=== PATIENT | male | born 1990 | race American Indian/Alaskan Native ===

== ENCOUNTER 2018-09-16 13:32 | Emergency (ER) | payer MEDICAID ==
[2018-09-16 13:52] VITALS: RESP 18
--- NOTE | 2018-09-16 14:58 | RAD ---
Date of service: 09/16/2018 HISTORY: abd pain COMPARISON: No prior. TECHNIQUE: Chest PA and lateral views FINDINGS: LUNGS: No active pulmonary disease. PLEURA: No significant pleural effusion identified. No pneumothorax apparent. CARDIOVASCULAR: No aortic atherosclerotic calcification present. Normal cardiac size. No pulmonary vascular congestion. OSSEOUS STRUCTURES: No significant abnormalities. VISUALIZED UPPER ABDOMEN: Normal. OTHER FINDINGS: None. IMPRESSION: No active disease.
[2018-09-16 15:02] LABS: BASO % 0.6 % (0.0-2.0); EOS # 0.1 K/uL (0.0-0.7); EOS % 1.4 % (0.0-4.0); HEMOGLOBIN 16.1 g/dL (12.0-18.0); LYMPH # 3.1 K/uL (1.0-4.3); LYMPH % 47.6 % (20.0-40.0); MEAN CELL VOLUME 84.6 fL (80.0-94.0); MEAN CORPUSCULAR HEMOGLOBIN 28.4 pg (27.0-31.0); MEAN CORPUSCULAR HGB CONC 33.6 g/dL (33.0-37.0); MEAN PLATELET VOLUME 6.7 fL (7.2-11.7); MONO # 0.5 K/uL (0.0-0.8); MONO % 8.1 % (0.0-10.0); NEUT # 2.8 K/uL (1.8-7.0); NEUT % 42.3 % (50.0-75.0); NRBC % 0.1 % (0.0-2.0); RBC 5.65 Mil/uL (4.40-5.90); RED CELL DISTRIBUTION WIDTH 13.1 % (11.5-14.5); WHITE BLOOD COUNT 6.5 K/uL (4.8-10.8)
[2018-09-16 15:06] LABS: URINE BILIRUBIN NEGATIVE (NEGATIVE); URINE BLOOD NEGATIVE (NEGATIVE); URINE CLARITY Clear (Clear); URINE COLOR Yellow (YELLOW); URINE GLUCOSE (UA) NORMAL (Normal); URINE LEUKOCYTE ESTERASE NEG Leu/uL (Negative); URINE PROTEIN NEGATIVE (NEGATIVE)
[2018-09-16 15:14] LABS: ALB/GLOB RATIO 1.2 (1.0-2.1); ALBUMIN 4.6 g/dL (3.5-5.0); ALT/SGPT 40 U/L (21-72); AST/SGOT 46 U/L (17-59); BLOOD UREA NITROGEN 13 mg/dL (9-20); CALCIUM 9.8 mg/dl (8.6-10.4); GFR NON-AFRICAN AMERICAN > 60
[2018-09-16 15:21] LABS: BARBITURATES, UR NEGATIVE (NEGATIVE); BENZODIAZEPINES, UR NEGATIVE (NEGATIVE); OPIATES, UR NEGATIVE (NEGATIVE); PHENCYCLIDINE, UR NEGATIVE (NEGATIVE)
--- NOTE | 2018-09-16 15:31 | C.PDOC ---
History Of Present Illness 28 year old male presents to the ED complaining of lower back pain for 3 weeks. Pain radiates down both legs. He also feels numbness and weakness to the right leg. Also for the past 2 weeks patient reports numbness to his tongue, legs, and arms. Patient went to [facility] [place] where they did an MRI and told patient he had herniated discs and a pinched nerve. They gave Tylenol and Motrin, which patient took without relief. Patient then followed up with Dr. Collins, who referred patient for neurology appointment that is scheduled for next month. Yesterday he was walking when his right leg gave out and he fell, hitting the back of his head. Now patient is also complaining of a headache. Since falling the patient states he feels like he cannot breathe right. He denies any chest pain, coughing, nausea, vomiting, dizziness, visual changes, or other injury. Time Seen by Provider: 09/16/18 14:01 Chief Complaint (Nursing): Back Pain History Per: Patient History/Exam Limitations: no limitations Onset/Duration Of Symptoms: Days Current Symptoms Are (Timing): Still Present Previous Symptoms: Back Pain Past Medical History Reviewed: Historical Data, Nursing Documentation, Vital Signs Vital Signs: Last Vital Signs Temp 98.3 F 09/16/18 13:49 Pulse 95 H 09/16/18 13:49 Resp 18 09/16/18 13:49 BP 118/83 09/16/18 13:49 Pulse Ox 99 09/16/18 13:49 - Medical History PMH: Back Problems (Herniated discs, Sciatica) Surgical History: No Surg Hx Family History: States: No Known Family Hx - Social History Hx Alcohol Use: No Hx Substance Use: No - Immunization History Hx Tetanus Toxoid Vaccination: Yes Hx Influenza Vaccination: Yes Hx Pneumococcal Vaccination: Yes Review Of Systems Constitutional: Negative for: Fever, Chills Eyes: Negative for: Vision Change Cardiovascular: Negative for: Chest Pain Respiratory: Positive for: Shortness of Breath ("cannot breathe right"). Negative for: Cough Gastrointestinal: Negative for: Nausea, Vomiting Musculoskeletal: Positive for: Back Pain, Leg Pain Neurological: Positive for: Weakness (in right leg), Numbness (to tongue, legs, arms), Headache. Negative for: Dizziness Physical Exam - Physical Exam Appears: Well, Non-toxic, No Acute Distress Skin: Warm, Dry, No Rash Head: Atraumatic, Normacephalic, Other (No facial asymmetry) Eye(s): bilateral: Normal Inspection, PERRL, EOMI Oral Mucosa: Moist Tongue: Normal Appearing (Tongue is not swollen or enlarged) Neck: Normal ROM, No Midline Cervical Tenderness, Supple Chest: Symmetrical Cardiovascular: Rhythm Regular, No Murmur Respiratory: Normal Breath Sounds, No Rales, No Rhonchi, No Wheezing Gastrointestinal/Abdominal: Soft, No Tenderness, No Distention Back: No Vertebral Tenderness, Paraspinal Tenderness (Bilateral paralumbar tenderness) Extremity: Bilateral: Atraumatic, Normal Color And Temperature, Other (Strength equal bilaterally in upper extremities) Neurological/Psych: Oriented x3, Normal Speech, Normal Cranial Nerves, Other (Strength to left lower extremity 5/5, right lower extremity 4/5) ED Course And Treatment - Laboratory Results Result Diagrams: 09/16/18 14:58 09/16/18 14:58 Lab Results: Total Bilirubin 1.2 mg/dL (0.2-1.3) 09/16/18 14:58 AST 46 U/L (17-59) 09/16/18 14:58 ALT 40 U/L (21-72) 09/16/18 14:58 Alkaline Phosphatase 84 U/L (38-126) 09/16/18 14:58 Total Protein 8.5 g/dL (6.3-8.3) H 09/16/18 14:58 Albumin 4.6 g/dL (3.5-5.0) 09/16/18 14:58 Globulin 3.9 gm/dL (2.2-3.9) 09/16/18 14:58 Albumin/Globulin Ratio 1.2 (1.0-2.1) 09/16/18 14:58 Urine Color Yellow (YELLOW) 09/16/18 14:58 Urine Clarity Clear (Clear) 09/16/18 14:58 Urine pH 6.0 (5.0-8.0) 09/16/18 14:58 Ur Specific [place] 1.013 (1.003-1.030) 09/16/18 14:58 Urine Protein Negative mg/dL (NEGATIVE) 09/16/18 14:58 Urine Glucose (UA) Normal mg/dL (Normal) 09/16/18 14:58 Urine Ketones Negative mg/dL (NEGATIVE) 09/16/18 14:58 Urine Blood Negative (NEGATIVE) 09/16/18 14:58 Urine Nitrate Negative (NEGATIVE) 09/16/18 14:58 Urine Bilirubin Negative (NEGATIVE) 09/16/18 14:58 Urine Urobilinogen 4.0 mg/dL (0.2-1.0) 09/16/18 14:58 Ur Leukocyte Esterase Neg Eric/uL (Negative) 09/16/18 14:58 Urine WBC (Auto) 1 /hpf (0-5) 09/16/18 14:58 Urine RBC (Auto) 1 /hpf (0-3) 09/16/18 14:58 O2 Sat by Pulse Oximetry: 99 (on room air) Pulse Ox Interpretation: Normal - Other Rad CXR X-Ray: Read By Radiologist Interpretation: Accession No. : [id number]. Patient Name / ID : TORITO ARMAS / [id number]. Exam Date : 09/16/2018 14:30:28 ( Approved ). Study Comment : Sex / Age : M / 28Y. Creator : David Ford MD. Dictator : David Ford MD. Mock Up Maker : Broom Builder : David Ford MD. Approver2 : Report Date : 09/16/2018 14:55:04. My Comment : * . Date of service: 09/16/2018. HISTORY: abd pain. COMPARISON: No prior. TECHNIQUE: Chest PA and lateral views. FINDINGS: LUNGS: No active pulmonary disease. PLEURA: No significant pleural effusion identified. No pneumothorax apparent. CARDIOVASCULAR: No aortic atherosclerotic calcification present. No rmal cardiac size. No pulmonary vascular congestion. OSSEOUS STRUCTURES: No significant abnormalities. VISUALIZED UPPER ABDOMEN: Normal. OTHER FINDINGS: None. IMPRESSION: No active disease. - CT Scan/US Head CT Other Rad Studies (CT/US): Read By Radiologist, Radiology Report Reviewed CT/US Interpretation: Accession No. : [id number]. Patient Name / ID : TORITO ARMAS / [id number]. Exam Date : 09/16/2018 14:58:41 ( Approved ). Study Comment : Sex / Age : M / 28Y. Creator : Fátima Kraft. Dictator : David Ford MD. Mock Up Maker : Broom Builder : David Ford MD. Approver2 : Report Date : 09/16/2018 15:32:14. My Comment : . Date of service: 09/16/2018. PROCEDURE: CT HEAD WITHOUT CONTRAST. HISTORY: headache. COMPARISON: Not available. TECHNIQUE: Axial computed tomography images were obtained through the head/brain without intravenous contrast. Radiation dose: Total exam DLP = 1113.29 mGy-cm. This CT exam was performed using one or more of the following dose reduction techniques: Automated exposure control, adjustment of the mA and/or kV according to patient size, and/or use of iterative reconstruction technique. FINDINGS: HEMORRHAGE: No intracranial hemorrhage. BRAIN: No mass effect or edema. No atrophy or chronic microvascular ischemic changes. VENTRICLES: Unremarkable. No hydrocephalus. CALVARIUM: Unremarkable. PARANASAL SINUSES: Unremarkable as visualized. No significant inflammatory changes. MASTOID AIR CELLS: Unremarkable as visualized. No inflammatory changes. OTHER FINDINGS: None. IMPRESSION: Normal CT of the Head. No intracranial mass, hemorrhage or evidence of acute infarct. Medical Decision Making Medical Decision Making: Impression: Back pain, SOB, head injury without LOC Initial Plan: - Blood work - UA, UDS - Pending Chest x-ray and Head CT - PO Tylenol given for pain Imaging reviewed, CT is negative. CXR shows no acute disease. Labs reviewed, UA is clear. Blood work is grossly normal. Patient remained afebrile alert and oriented with stable vital signs during ER evaluation. Discussed results with patient, and copy of lab and CT report was provided. On re-examination, patient is resting comfortably in no acute distress. Patient reports improvement of symptoms. Patient feels comfortable going home and will be discharged. Patient given follow up instructions. Instructed to return to ER if symptoms worsen or new symptoms arise. Disposition Counseled Patient/Family Regarding: Diagnosis, Need For Followup, Rx Given - Disposition Referrals: Marin Collins MD [Staff Provider] - Disposition: HOME/ ROUTINE Disposition Time: 16:18 Condition: STABLE Additional Instructions: Apply heat to area for 15-20 minutes at a time 2-3 times per day Take Motrin for pain every 6-8 hours as needed, with food to not upset stomach Take Flexeril for muscle pain and spasm every 6-8 hours as needed, caution can c ause drowsiness Follow up with your primary medical doctor or clinic in 2-5 days for further evaluation Return to the emergency department at any time if symptoms persist or worsen. Prescriptions: Acetaminophen [Acetaminophen 8 Hour] 650 mg PO Q8 #30 tablet.er Cyclobenzaprine [Cyclobenzaprine HCl] 10 mg PO TID #30 tab Ibuprofen [Motrin] 600 mg PO Q8 #30 tab Instructions: Sciatica (DC), Head Injury (ED) Forms: [employer] (Algerian) - POA Present On Arrival: Falls Or Trauma - Clinical Impression Clinical Impression: Cervical radiculitis, Sciatica, Low back pain, Closed head injury - PA / MEDICAL RECORDS DIRECTOR / Resident Statement MD/DO has reviewed & agrees with the documentation as recorded. - Scribe Statement The provider has reviewed the documentation as recorded by the Margaret Coelho All medical record entries made by the Scribe were at my direction and personally dictated by me. I have reviewed the chart and agree that the record accurately reflects my personal performance of the history, physical exam, medical decision making, and the department course for this patient. I have also personally directed, reviewed, and agree with the discharge instructions and disposition.
--- NOTE | 2018-09-16 15:47 | CT ---
Date of service: 09/16/2018 PROCEDURE: CT HEAD WITHOUT CONTRAST. HISTORY: headache COMPARISON: Not available TECHNIQUE: Axial computed tomography images were obtained through the head/brain without intravenous contrast. Radiation dose: Total exam DLP = 1113.29 mGy-cm. This CT exam was performed using one or more of the following dose reduction techniques: Automated exposure control, adjustment of the mA and/or kV according to patient size, and/or use of iterative reconstruction technique. FINDINGS: HEMORRHAGE: No intracranial hemorrhage. BRAIN: No mass effect or edema. No atrophy or chronic microvascular ischemic changes. VENTRICLES: Unremarkable. No hydrocephalus. CALVARIUM: Unremarkable. PARANASAL SINUSES: Unremarkable as visualized. No significant inflammatory changes. MASTOID AIR CELLS: Unremarkable as visualized. No inflammatory changes. OTHER FINDINGS: None. IMPRESSION: Normal CT of the Head. No intracranial mass, hemorrhage or evidence of acute infarct.
[2018-09-16 16:42] VITALS: BP 126/85; PULSE 102; TEMP 98.5
[2018-09-16 17:10] VITALS: O2SAT 99
== END 2018-09-16 16:40 | disposition home or self-care (01) ==
LOC: C.ER 13:32
DX: M54.40 Lumbago with sciatica, unspecified side (principal); M54.12 Radiculopathy, cervical region; S09.90XA Unspecified injury of head, initial encounter; W18.30XA Fall on same level, unspecified, initial encounter